=== PATIENT | female | born 1975 | race Caucasian/White ===

== ENCOUNTER 2021-02-19 16:18 | Emergency (ER) | payer OTHER ==
[~2021-02-19] VITALS: Ht 165.1 cm; Wt 102.1 kg
[~2021-02-19 16:18] MED LIST: IBUPROFEN800 MG PO; LASIX40 MG PO; LODINE CAP 300300 MG PO; NORCO 5-325 TA1 EACH PO; TOPROL XL 25 MG25 MG PO
== END 2021-02-19 18:27 | disposition home or self-care (01) ==
LOC: ER1 16:18
DX: Z23 Encounter for immunization (principal); U07.1 COVID-19; I10 Essential (primary) hypertension; F17.200 Nicotine dependence, unspecified, uncomplicated; Z90.710 Acquired absence of both cervix and uterus
CPT/HCPCS: 99284; M0243